=== PATIENT | male | born 1940 | race Caucasian/White ===

== ENCOUNTER 2017-04-22 08:09 | Day surgery (SDC) | payer MEDICARE, BC ==
[~2017-04-22 08:09] MED LIST: LIDOCAINE HCL 1% MPF SOL ONE; PROPOFOL 500 MG/50 ML EMU IV ONE
[2017-04-22 09:49] VITALS: TEMP 97.1
[2017-04-22 10:28] VITALS: BP 151/66; PULSE 51; RESP 20; O2SAT 94
== END 2017-04-22 10:35 | disposition home or self-care (01) | DRG 382 ==
LOC: SURG 08:09
PROVIDERS: ATTEND Internal Medicine Gastroenterology
DX: K22.70 Barrett's esophagus without dysplasia (principal); K44.9 Diaphragmatic hernia without obstruction or gangrene
CPT/HCPCS: 82962; J2001; J2704

== ENCOUNTER 2018-01-22 15:35 | Outpatient (CLI) | payer OTHER, MEDICARE, BC ==
[2017-04-22 10:28] VITALS: O2SAT 94
[2018-01-22 16:30] LABS: BASOPHILS % (AUTO) 2 % (0-3); EOSINOPHILS % (AUTO) 2 % (0-9); HEMATOCRIT 40 % (39-53); HEMOGLOBIN 14.3 gm/dl (13.5-17.7); LYMPHOCYTES % (AUTO) 20.1 % (10-50); MEAN CORPUSCULAR HEMOGLOBIN 32.3 pg (27.0-32.0); MEAN CORPUSCULAR HGB CONC 35.5 gm/dl (32.0-36.0); MEAN CORPUSCULAR VOLUME 91 fL (80-100)
== END 2018-01-22 15:36 | disposition home or self-care (01) | DRG 556 ==
LOC: CONVCARE 15:35
PROVIDERS: ATTEND Orthopaedic Surgery
DX: M25.561 Pain in right knee (principal); S82.101D Unspecified fracture of upper end of right tibia, subsequent encounter for closed fracture with routine healing
CPT/HCPCS: 36415; 73564; 85025; 85651

== ENCOUNTER 2018-03-12 15:15 | Outpatient (CLI) | payer MEDICARE, BC ==
[2017-04-22 10:28] VITALS: O2SAT 94
== END 2018-03-12 15:16 | disposition home or self-care (01) | DRG 566 ==
LOC: CONVCARE 15:15
PROVIDERS: ATTEND Orthopaedic Surgery
DX: M21.372 Foot drop, left foot (principal)
CPT/HCPCS: 72170

== ENCOUNTER 2018-06-18 14:16 | Outpatient (CLI) | payer MEDICARE, BC ==
[2017-04-22 10:28] VITALS: O2SAT 94
== END 2018-06-18 14:17 | disposition home or self-care (01) | DRG 552 ==
LOC: CONVCARE 14:16
PROVIDERS: ATTEND Orthopaedic Surgery
DX: M54.5 Low back pain (principal); M25.561 Pain in right knee
CPT/HCPCS: 72170